=== PATIENT | male | born 1975 | race African-American/Black ===

== ENCOUNTER 2023-07-14 06:53 | Emergency (ER) | payer OTHER, MEDICAID ==
[~2023-07-14] VITALS: Ht 180.3 cm; Wt 102.7 kg
[2023-07-14 07:38] LABS: Basophils # (auto) 0.1 10 ^3/uL (0-0.2); Basophils % (auto) 1.2 % (0.0-2.0); Eosinophils # (auto) 0.1 10 ^3/uL (0-0.8); Eosinophils % (auto) 2.1 % (0.0-7.0); Hematocrit 47.2 % (41.0-53.0); Hemoglobin 15.6 g/dL (13.5-17.5); Lymphocytes # (auto) 1.8 10 ^3/uL (0.4-5.4); Lymphocytes % (auto) 26.2 % (10.0-50.0); Mean Corpuscular Hemoglobin 31.3 pg (28.0-32.0); Mean Corpuscular Volume 94.9 fL (80.0-100.0); Monocytes # (auto) 0.6 10 ^3/uL (0-1.3); Monocytes % (auto) 8.1 % (0.0-12.0); Neutrophils # (auto) 4.4 10 ^3/uL (1.6-8.6); Neutrophils % (auto) 62.4 % (37.0-80.0); Nucleated Red Blood Cells % 0.1 %; Red Blood Cells 4.98 10^6/uL (4.5-5.90); Red Cell Distribution Width 14.3 % (11.8-14.3)
[2023-07-14 07:46] LABS: Chloride 110 mmol/L (98-107); Potassium 4.1 mmol/L (3.5-5.1); Sodium 143 mmol/L (136-145)
[2023-07-14 07:47] LABS: Anion Gap 5 (5-15); Calcium 9.4 mg/dL (8.5-10.1); Carbon Dioxide 28 mmol/L (20-30)
[2023-07-14 07:52] LABS: BUN/Creatinine Ratio 10.1 (10.0-20.0); Blood Urea Nitrogen 14 mg/dL (9-23); Glucose 112 mg/dL (74-106)
[2023-07-14] MEDS ORDERED: PRED10TA PO (07:55)
[2023-07-14] MEDS ORDERED: PRED20TA2 PO (07:55)
[2023-07-14] MEDS ORDERED: PANT40TA2 PO (07:57)
[2023-07-14] MEDS ORDERED: PANTOPRAZOLE 40 MG TAB PO ONE (08:00)
[2023-07-14] MEDS ORDERED: predniSONE 20 MG TAB PO ONE (08:00)
[2023-07-14 08:05] VITALS: BP 146/77; PULSE 77; RESP 18; TEMP 97.7; O2SAT 93
[2023-07-14 08:17] LABS: Urine Bacteria NONE SEEN /hpf (None Seen); Urine Blood Negative /uL (Negative); Urine Clarity Clear (Clear); Urine Color Yellow (Yellow); Urine Protein, UAD Negative (Negative); Urine Specific Gravity 1.028 (1.001-1.035); Urine Urobilinogen Normal (Negative); Urine WBC <1 /hpf (0 - 3)
== END 2023-07-14 08:24 | disposition home or self-care (01) ==
LOC: ER 06:53
DX: G51.0 Bell's palsy (principal)
CPT/HCPCS: 36415; 70450; 80048; 81001; 85025; 99284; J7512